=== PATIENT | male | born 1955 | race Caucasian/White ===

== ENCOUNTER 2019-03-04 06:31 | Emergency (ER) | payer OTHER ==
[~2019-03-04] VITALS: Ht 188 cm; Wt 118.2 kg
[2019-03-04] MEDS ORDERED: METOPROL TAR25 MG PO (06:46)
[2019-03-04] MEDS ORDERED: OMEPRAZOLE10 MG PO (06:47)
[2019-03-04] MEDS ORDERED: ASPIRIN CHEWABL81 MG PO (06:47)
[2019-03-04] MEDS ORDERED: ATORVASTATIN CA10 MG PO (06:47)
[2019-03-04] MEDS ORDERED: ALL DAY ALLG10 MG PO (06:47)
[2019-03-04] MEDS ORDERED: CO Q-10100 MG PO (06:48)
[2019-03-04] MEDS ORDERED: GLUCOSAMINE H1500 MG (06:49)
[2019-03-04] MEDS ORDERED: FISH OIL1 CAP (06:49)
[2019-03-04] MEDS ORDERED: ERYTHROMYCIN O3.5 GM OU (07:38)
[2019-03-04] MEDS ORDERED: ACULAR LS0.4 % OD (07:38)
[2019-03-04 07:43] VITALS: BP 143/88
== END 2019-03-04 07:49 | disposition home or self-care (01) | DRG 125 ==
LOC: ED 06:31
DX: S05.01XA Injury of conjunctiva and corneal abrasion without foreign body, right eye, initial encounter (principal); F17.220 Nicotine dependence, chewing tobacco, uncomplicated; Y93.H9 Activity, other involving exterior property and land maintenance, building and construction